=== PATIENT | male | born 1965 | race Caucasian/White ===

== ENCOUNTER → 2018-06-28 | Outpatient (CLI) | payer BC ==
--- NOTE | 2018-06-29 09:13 | PCVCIMAG ---
APPROVED REPORT Study performed: 06/28/2018 13:17:29 Exam: Stress Echocardiogram Indication: Hyperlipidemia, Hypertension, Fam hx cad Patient Location: Echo lab Stress Nurse: Amirah Farley RN Status: routine Ht: 6 ft 0 in HR: 75 bpm BP: 160/88 mmHg Rhythm: NSR Medical History Medical History: Hyperlipidemia, HTN Exercise History: Physically active Procedure The patient underwent an Exercise Stress Test using the Karsten Protocol. Blood pressure, heart rate, and EKG were monitored. An Echocardiogram was performed by advanced manufacturing technician in four stages in quad fashion. At peak stress, four selected images were obtained and placed side by side with resting images for comparison. Stress Test Details Stress Test: Exercise stress testing was performed using a Karsten protocol. HR Resting HR: 75 bpmMax Heart Rate (APMHR): 167 bpm Max HR Achieved: 160 bpmTarget HR (85% APMHR): 141 bpm % of APMHR: 95 HR response to stress: Normal HR response to stress BP Resting BP: 160/88 mmHg Max BP: 208/80 mmHg ECG Resting ECG: Sinus Rhythm Stress ECG: Sinus Rhythm Recovery ECG: Sinus Rhythm Clinical Reason for Termination: Maximal effort Exercise duration: 10 min 03 sec Highest Stage Achieved: Stage 4: 4.2 mph at 16% grade. Exercise capacity: 13.40 METs Overall Exercise Capacity for Age: Good Pre-Stress Echo The resting Echocardiogram showed normal left ventricular contractility with an estimated Ejection Fraction of about 55-60%. Normal wall motion in all segments on baseline images. Post-Stress Echo The stress Echocardiogram showed normal left ventricular contractility with an estimated Ejection Fraction of about 60-65%. Normal augmentation of wall motion in all segments on post stress images. Conclusion Clinical Response: Non-ischemic Exercise Capacity: Average Stress ECG Response: Non-ischemic Stress Echo Images: Non-ischemic The left ventricle is normal in size and wall thickness in both the rest and stress images. <Conclusion> The left ventricle is normal in size and wall thickness in both the rest and stress images.
== END | disposition home or self-care (01) ==
LOC: PCVCIMAG 16:38
PROVIDERS: ATTEND Internal Medicine Cardiovascular Disease
DX: I10 Essential (primary) hypertension (principal); R06.09 Other forms of dyspnea; I25.10 Atherosclerotic heart disease of native coronary artery without angina pectoris; E78.5 Hyperlipidemia, unspecified
CPT/HCPCS: 93325; 93351